=== PATIENT | female | born 1960 | race Caucasian/White ===

== ENCOUNTER 2017-04-07 12:02 | Inpatient (IN) ==
[2017-04-07 13:56] LABS: Basophils # 0.1 10*3/uL (0.0-0.2); Basophils % 0.3 % (0.0-0.8); Hematocrit 33.7 VOL% (35.7-47.0); Hemoglobin 11.7 GM/DL (12.0-16.0); Immature Granulocytes % 0.6 %; Immature Granulocytes Absolute 0.13 #; Lymphocytes # 1.7 10*3/uL (1.4-4.0); Lymphocytes % 8.1 % (21.3-54.2); Mean Corpuscular HGB Conc 34.7 GM/DL (32-36); Mean Corpuscular Hemoglobin 30 PG (27-34); Mean Corpuscular Volume 87.3 FL (87-102); Mean Platelet Volume 9.2 FL (9.6-12.0); Monocytes # 1.2 10*3/uL (0.11-0.8); Monocytes % 5.8 % (1.7-12.7); Neutrophils # 17.5 10*3/uL (1.4-7.4); Neutrophils % 85.2 % (38.7-73.9); Platelet Count 210 T/CUMM (130-400); Red Blood Count 3.86 MC/CUMM (3.8-5.5); Red Cell Distribution Width 13.5 % (9.3-17.3); White Blood Count 20.5 T/CUMM (4-12)
[2017-04-07 14:20] LABS: Albumin 3.4 G/DL (3.4-5.0); Bilirubin,Total 0.4 MG/DL (0.2-1.0); Calcium 8.6 MG/DL (8.5-10.1); Osmolality,Calculated 267.1 MOS/KG (273-304); Potassium 3.4 MMOL/L (3.5-5.1); Total Protein 6.9 G/DL (6.4-8.3)
[2017-04-07 14:28] LABS: Band Neutrophils 4 % (0-10); Lymphocytes 11 % (20-55); Platelet Estimate Adequate; Segmented Neutrophils 82 % (50-85)
[2017-04-07 14:29] LABS: Total Cells Counted 100
[2017-04-07] MEDS ORDERED: NICOTINE 21 MG/24 HR PATCH TRANSDERM PRN (15:19)
[2017-04-07 15:44] LABS: ABG Base Excess 2.5 MMOL/L (-2.5-2.5); ABG HCO3 26.5 MMOL/L (20-26); ABG Oxygen Saturation 88.6 % (95-100); ABG PH 7.484 (7.35-7.45); ABG PO2 53.4 MM HG (80-95); ABG TCO2 22.8 MMOL/L (23-27)
[2017-04-07] MEDS: ALBUTEROL/IPRATROPIUM 3 ML NEB RESP TX SCH ×2 (16:24→19:27)
[2017-04-07] MEDS ORDERED: POTASSIUM CHLORIDE 20 MEQ TABLET PO ONE (16:58)
[2017-04-07] MEDS ORDERED: ALBUTEROL/IPRATROPIUM 3 ML NEB RESP TX ONE (17:31)
[2017-04-07] MEDS: cefTRIAXone 1,000 MG in SYRINGE 1 EACH IV SCH (18:47)
[2017-04-07] MEDS: PANTOPRAZOLE 40 MG TABLET PO SCH (18:47)
[2017-04-07] MEDS: AZITHROMYCIN INJ 500 MG in SODIUM CHLORIDE 0.9% 250 ML IV SCH (18:47)
[2017-04-07] MEDS: ENOXAPARIN 40 MG/0.4 ML SYRINGE SUBCUT SCH (18:47)
[2017-04-07] MEDS: SODIUM CHLORIDE 0.9% 1,000 ML IV SCH ×2 (18:47→23:06)
[2017-04-07] MEDS: ACETAMINOPHEN 325 MG TABLET PO PRN ×2 (18:47→22:02)
[2017-04-07] MEDS: ALPRAZolam 0.25 MG TABLET PO PRN (18:48)
[2017-04-07] MEDS: ZALEPLON 5 MG CAPSULE PO PRN (19:50)
[2017-04-08] MEDS: ALBUTEROL/IPRATROPIUM 3 ML NEB RESP TX SCH ×4 (00:40→19:41)
[2017-04-08] MEDS ORDERED: KETOROLAC 15 MG/1 ML VIAL IV ONE (01:00)
[2017-04-08 05:31] LABS: Basophils % 0.2 % (0.0-0.8); Hemoglobin 9.8 GM/DL (12.0-16.0); Immature Granulocytes % 2.5 %; Immature Granulocytes Absolute 0.45 #; Lymphocytes # 1.3 10*3/uL (1.4-4.0); Lymphocytes % 7.2 % (21.3-54.2); Mean Corpuscular HGB Conc 32.7 GM/DL (32-36); Mean Corpuscular Hemoglobin 29 PG (27-34); Mean Corpuscular Volume 90.1 FL (87-102); Mean Platelet Volume 10.2 FL (9.6-12.0); Monocytes # 1.1 10*3/uL (0.11-0.8); Monocytes % 6.1 % (1.7-12.7); Neutrophils # 15.4 10*3/uL (1.4-7.4); Platelet Count 214 T/CUMM (130-400); Red Blood Count 3.33 MC/CUMM (3.8-5.5); Red Cell Distribution Width 13.5 % (9.3-17.3); White Blood Count 18.3 T/CUMM (4-12)
[2017-04-08] MEDS: ACETAMINOPHEN 325 MG TABLET PO PRN (05:38)
[2017-04-08 05:59] LABS: Calcium 7.7 MG/DL (8.5-10.1); Potassium 3.6 MMOL/L (3.5-5.1)
[2017-04-08 06:34] LABS: Band Neutrophils 6 % (0-10); Giant Platelets Few; Hypochromasia 1+; Lymphocytes 4 % (20-55); Platelet Estimate Adequate; Segmented Neutrophils 86 % (50-85); Total Cells Counted 100
[2017-04-08] MEDS ORDERED: KETOROLAC 15 MG/1 ML VIAL IV SCH (08:00)
[2017-04-08] MEDS: PANTOPRAZOLE 40 MG TABLET PO SCH (08:23)
[2017-04-08] MEDS: ALPRAZolam 0.25 MG TABLET PO PRN (08:28)
[2017-04-08] MEDS: SODIUM CHLORIDE 0.9% 1,000 ML IV SCH ×5 (08:28→23:53)
[2017-04-08] MEDS ORDERED: CALCIUM GLUCONATE 2,000 MG in SODIUM CHLORIDE 0.9% 100 ML IV ONE (09:00)
[2017-04-08] MEDS: LEVOTHYROXINE 112 MCG TABLET PO SCH (09:55)
[2017-04-08] MEDS: guaiFENesin/DM ER 600-30 MG TABLET PO SCH ×2 (12:26→20:39)
[2017-04-08] MEDS: MONTELUKAST 10 MG TABLET PO SCH ×2 (12:26→20:39)
[2017-04-08] MEDS: KETOROLAC 30 MG/1 ML VIAL IV PRN ×2 (15:03→20:39)
[2017-04-08] MEDS: cefTRIAXone 1,000 MG in SYRINGE 1 EACH IV SCH (15:04)
[2017-04-08] MEDS: AZITHROMYCIN INJ 500 MG in SODIUM CHLORIDE 0.9% 250 ML IV SCH (15:11)
[2017-04-08] MEDS: ENOXAPARIN 40 MG/0.4 ML SYRINGE SUBCUT SCH (17:37)
[2017-04-08] MEDS: ZALEPLON 5 MG CAPSULE PO PRN (21:32)
[2017-04-09] MEDS: ALBUTEROL/IPRATROPIUM 3 ML NEB RESP TX SCH ×4 (00:55→20:29)
[2017-04-09] MEDS: KETOROLAC 30 MG/1 ML VIAL IV PRN ×3 (02:36→17:32)
[2017-04-09 05:33] LABS: Basophils % 0.2 % (0.0-0.8); Eosinophils % 0.3 % (0.00-10.9); Hematocrit 26.5 VOL% (35.7-47.0); Hemoglobin 8.9 GM/DL (12.0-16.0); Immature Granulocytes Absolute 0.23 #; Lymphocytes # 0.9 10*3/uL (1.4-4.0); Lymphocytes % 8.1 % (21.3-54.2); Mean Corpuscular HGB Conc 33.6 GM/DL (32-36); Mean Corpuscular Hemoglobin 30 PG (27-34); Mean Corpuscular Volume 89.5 FL (87-102); Mean Platelet Volume 9.5 FL (9.6-12.0); Monocytes # 0.5 10*3/uL (0.11-0.8); Monocytes % 4.7 % (1.7-12.7); Neutrophils # 9.7 10*3/uL (1.4-7.4); Neutrophils % 84.7 % (38.7-73.9); Platelet Count 234 T/CUMM (130-400); Red Blood Count 2.96 MC/CUMM (3.8-5.5); Red Cell Distribution Width 13.6 % (9.3-17.3); White Blood Count 11.4 T/CUMM (4-12)
[2017-04-09 06:00] LABS: Calcium 7.6 MG/DL (8.5-10.1); Osmolality,Calculated 279.3 MOS/KG (273-304); Potassium 3.3 MMOL/L (3.5-5.1)
[2017-04-09] MEDS: SODIUM CHLORIDE 0.9% 1,000 ML IV SCH ×3 (06:31→20:41)
[2017-04-09] MEDS: PANTOPRAZOLE 40 MG TABLET PO SCH (08:41)
[2017-04-09] MEDS: guaiFENesin/DM ER 600-30 MG TABLET PO SCH ×2 (08:41→20:10)
[2017-04-09] MEDS: MONTELUKAST 10 MG TABLET PO SCH ×2 (08:42→20:09)
[2017-04-09] MEDS: LEVOTHYROXINE 112 MCG TABLET PO SCH (08:44)
[2017-04-09] MEDS: ALPRAZolam 0.25 MG TABLET PO PRN (10:30)
[2017-04-09] MEDS: cefTRIAXone 1,000 MG in SYRINGE 1 EACH IV SCH (17:25)
[2017-04-09] MEDS: AZITHROMYCIN INJ 500 MG in SODIUM CHLORIDE 0.9% 250 ML IV SCH (17:25)
[2017-04-09] MEDS: ENOXAPARIN 40 MG/0.4 ML SYRINGE SUBCUT SCH (17:25)
[2017-04-09] MEDS: ZALEPLON 5 MG CAPSULE PO PRN (20:10)
[2017-04-10] MEDS: ALBUTEROL/IPRATROPIUM 3 ML NEB RESP TX SCH ×3 (01:51→14:26)
[2017-04-10] MEDS: KETOROLAC 30 MG/1 ML VIAL IV PRN (02:12)
[2017-04-10] MEDS: ALPRAZolam 0.25 MG TABLET PO PRN (02:13)
[2017-04-10] MEDS: LEVOTHYROXINE 112 MCG TABLET PO SCH (06:33)
[2017-04-10] MEDS: PANTOPRAZOLE 40 MG TABLET PO SCH (08:00)
[2017-04-10] MEDS: MONTELUKAST 10 MG TABLET PO SCH (08:00)
[2017-04-10] MEDS: guaiFENesin/DM ER 600-30 MG TABLET PO SCH (08:00)
[2017-04-10 08:33] LABS: Potassium 3.4 MMOL/L (3.5-5.1)
[2017-04-10] MEDS ORDERED: ESCITALOPRAM 10 MG TABLET PO SCH (09:00)
[2017-04-10] MEDS ORDERED: ATENOLOL 25 MG TABLET PO SCH (09:00)
[2017-04-10] MEDS: SODIUM CHLORIDE 0.9% 1,000 ML IV SCH (10:09)
[2017-04-10 12:20] VITALS: BP 122/68
[2017-04-10] MEDS ORDERED: POTASSIUM CHLORIDE 20 MEQ TABLET PO ONE (12:27)
[2017-04-10] MEDS: cefTRIAXone 1,000 MG in SYRINGE 1 EACH IV SCH ×2 (12:47→14:26)
== END 2017-04-10 14:28 | disposition home or self-care (01) | DRG 871 ==
LOC: N.ED 12:02 → N.EDINP 15:28 → SUATTDRO 15:28 → N.EDINP 16:54 → N.2E 16:58
PROVIDERS: ADMIT Internal Medicine; ATTEND Internal Medicine